=== PATIENT | male | born 1980 | race Caucasian/White ===

== ENCOUNTER 2017-09-15 12:56 | Emergency (ER) | payer OTHER ==
[~2017-09-15] VITALS: Ht 185.4 cm; Wt 113.1 kg
[2017-09-15 13:00] VITALS: TEMP 36.4; Ht 185.4 cm; Wt 113.1 kg
[2017-09-15] MEDS ORDERED: LIDOCAINE/EPINEPHRINE 1% 20 ML VIAL INFIL ONE (13:15)
--- NOTE | 2017-09-15 13:15 | EMERGENCY ROOM VISIT NOTE ---
ED Visit Note First contact with patient: 13:04 CHIEF COMPLAINT: Hand laceration HISTORY OF PRESENT ILLNESS: This 37-year-old male patient presents to the emergency department by private vehicle after cutting the left hand with a paring knife approximately 45 minutes ago. The bleeding has not stopped, but has been controlled with pressure dressing. Denies weakness or numbness/ tingling of the hand or fingers. The patient rates the pain as stinging and 2/ 10. The patient denies any other injuries. The patient's Tetanus shot is up to date. REVIEW OF SYSTEMS: A 6 system review of systems was completed with positives and pertinent negatives listed in the HPI. ALLERGIES: NKA MEDICATIONS: Patient denies any medications PMH: No significant past medical or surgical history. SOCIAL HISTORY: Lives at home with family. Denies tobacco use. PHYSICAL EXAM: Vital Signs: Reviewed Nurse's notes, vital signs stable. GENERAL : Pleasant and cooperative, in no acute distress, well-developed, well- nourished. SKIN: There is a 2 cm long laceration on the palmar aspect of the left hand just below the MCP joint of the thumb. The edges gape apart with traction. There is no foreign material in the wound and it looks clean. There is active bleeding. No deep structures such as tendons, bones, or significant blood vessels are seen in the base of the wound. Normal strength and movement of the fingers and wrist. Capillary refill less than 2 seconds. Normal sensation to light and sharp touch. EMERGENCY DEPARTMENT COURSE: I examined the patient. Verbal consent was obtained to perform the procedure. Using sterile technique the wound was cleansed with Betadine. The area was sterilely draped. 3 ml of 1% buffered lidocaine with epinephrine was used to anesthetize the laceration on the hand. Once the patient was anesthetized, the wound was copiously irrigated under pressure with sterile saline and Betadine. The wound was explored and was as described above. The laceration was repaired using 5 simple interrupted 5-0 nylon sutures with the wound edges being well approximated. The patient tolerated the procedure well. Hemostasis was achieved. The area was cleaned with sterile saline and dressed with bacitracin ointment and bandage. The patient was educated regarding wound care, follow-up, and concerning signs/ symptoms should prompt return, he verbalized understanding. The patient was discharged home in stable condition and ambulatory. Current/Historical Medications No Active Prescriptions or Reported Meds Allergies Coded Allergies: No Known Allergies (Unverified , 09/15/17) Vital Signs Date Time Temp Pulse Resp B/P (MAP) Pulse Ox O2 Delivery O2 Flow Rate FiO2 09/15/17 13:48 70 17 123/80 98 Room Air 09/15/17 13:00 36.4 72 16 127/86 96 Room Air Medications Administered Medications (Trade) Dose Ordered Sig/Theodore Route Start Time Stop Time Status Last Admin Dose Admin Lidocaine/ Epinephrine (Xylocaine/Epine 1% Inj) 20 ml ONE ONCE INFIL 09/15/17 13:15 09/15/17 13:16 DC 09/15/17 13:15 20 ML Departure Information Impression Primary Impression: Laceration of hand, left Dispostion Home / Self-Care Condition GOOD Prescriptions No Active Prescriptions or Reported Meds Referrals Canelo Waters M.D. (PCP) Patient Instructions ED Laceration Hand, [facility] Additional Instructions Follow-up with your PCP, in urgent care, or ER for suture removal in 8-10 days. Keep the wound clean and dry. Do not allow any crusting or dried blood to accumulate on sutures. If this occurs, use a 1:1 solution of hydrogen peroxide/ water on a Q-tip to clean the wound. Use an antibiotic ointment and keep covered for 3-4 days, then let wound dry and open to air Do not immerse the hand in water until the wound is fully healed and the sutures have been removed. Ice and elevate for swelling and pain. Ibuprofen 600 mg every 6 hours and/or Tylenol 1000 mg every 8 hrs as needed for pain. As with any laceration, you may have temporary or permanent nerve damage. Keep covered when in sun until sutures removed then SPF 50 or higher for one year. Vitamin E oil if desired two weeks after suture removal for reduction of scar. Please seek immediate medical attention for any signs of infection (increasing pain, redness, swelling, pus drainage, streaking up the arm, fever/chills). Problem Qualifiers Primary Impression: Laceration of hand, left Encounter type: initial encounter Foreign body presence: without foreign body Qualified Codes: S61.412A - Laceration without foreign body of left hand , initial encounter
[2017-09-15 13:48] VITALS: BP 123/80; PULSE 70; O2SAT 98
== END 2017-09-15 13:50 | disposition home or self-care (01) ==
LOC: C.EDB 12:59 → C.EDD 13:50
DX: S61.412A Laceration without foreign body of left hand, initial encounter (principal); W26.0XXA Contact with knife, initial encounter